=== PATIENT | male | born 1980 | race Two or more races ===

== ENCOUNTER 2018-02-01 13:58 | Outpatient (CLI) | payer OTHER ==
[~2018-02-01 13:58] MED LIST: LISINOPRIL20 MG PO; PROPECIA1 MG; PROPECIA1 MG PO
== END 2018-02-01 14:11 | disposition home or self-care (01) ==
LOC: RAD 501 13:58
DX: M25.571 Pain in right ankle and joints of right foot (principal); M79.604 Pain in right leg

== ENCOUNTER 2018-03-07 11:05 | Outpatient (CLI) | payer OTHER | END 2018-03-07 11:06 | disposition home or self-care (01) | LOC: RAD 501 11:05 | DX: M25.532 Pain in left wrist (principal) ==

== ENCOUNTER 2021-04-30 14:52 | Outpatient (CLI) | payer OTHER | END 2021-04-30 14:53 | disposition home or self-care (01) | LOC: NUCLEAR 14:52 | DX: M79.604 Pain in right leg (principal); Z86.718 Personal history of other venous thrombosis and embolism ==